=== PATIENT | female | born 1955 | race Caucasian/White ===

== ENCOUNTER 2016-05-24 20:28 | Emergency (ER) | payer MEDICARE, OTHER ==
[~2016-05-24 20:28] MED LIST: ACYC400T2 PO; CALC-190 PO; CHOL100043 PO; CITA40TA13 PO; CYAN1TAB42 PO; CYCL10TA9 PO; MULT1CAP33 PO; OXYC5CAP4 PO; POLY17PO2 PO; SIMV40TA5 PO; SYMINH IH
[2016-05-24 20:45] VITALS: BP 160/109; PULSE 96; RESP 16; O2SAT 96
--- NOTE | 2016-05-24 21:24 | ED.REPORT ---
HPI-Abd Pain F 40 and Over Date of Service May 24, 2016 ED Provider: Andrés Arevalo MD Patient is a 61 year old female with a hx of UTI and chronic back pain who presents to the ED due to lower abdominal pain that began two days ago. She c/o associated cloudy urine, intermittent back pain, nausea, and has felt feverish. She was diagnosed with E-coli six days ago and received appropriate single dose antibiotic therapy. She denies vomiting. She is currently out of her oxycodone and cannot get a refill for 4 more days. Nursing Notes Stated Complaint: ABDOMINAL PAIN, UTI SYMPTOMS Chief Complaint: Female Abdominal Pain Nursing Notes Reviewed: Yes Allergies: Coded Allergies: Penicillins (Verified Allergy, Severe, ANAPHYLACTIC, 11/15/15) ibuprofen (Verified Allergy, Intermediate, LIPS SWELL, 11/15/15) Cephalosporins (Verified Allergy, Unknown, 11/15/15) Nitrofuran Analogues (Verified Allergy, Unknown, UNKNOWN, 10/12/14) Opioids - Morphine Analogues (Verified Allergy, Unknown, 11/15/15) Sulfa (Sulfonamide Antibiotics) (Verified Allergy, Unknown, 11/15/15) bupropion (Verified Allergy, Unknown, 11/15/15) codeine (Verified Allergy, Unknown, 11/15/15) fluoxetine (Verified Allergy, Unknown, UNKNOWN, 11/15/15) hydrocodone bitartrate (Verified Allergy, Unknown, 11/15/15) iodine (Verified Allergy, Unknown, 11/15/15) phenazopyridine HCl (Verified Allergy, Unknown, 11/15/15) povidone-iodine (Verified Allergy, Unknown, HIVES, SORETHROAT, 11/15/15) soap (Verified Allergy, Unknown, HIVES, SORETHROAT, 11/15/15) trazodone (Verified Allergy, Unknown, UNKNOWN, 11/15/15) varenicline (Verified Allergy, Unknown, UNKNOWN, 11/15/15) Scheduled Acyclovir (Acyclovir) 400 Mg Tablet 400 MG PO PRN Budesonide/Formoterol 160-4.5 mcg Inh (Symbicort 160-4.5 mcg Inh) 1 Puff Inha 1 PUFF IH BID Calcium Carb&Cit/Mag12/Vit D3 (Calcium 500 mg Tablet) 1 Each Tablet 1 EACH PO BID Cholecalciferol (Vitamin D3) (Vitamin D) 1,000 Unit Tablet 1,000 UNIT PO DAILY Citalopram (Citalopram) 40 Mg Tablet 40 MG PO DAILY Cyanocobalamin/Folic Acid (Vitamin T28-Tqhxr Acid Tablet) 1 Each Tablet 1 EACH PO DAILY Multivitamin (Multivitamins) 1 Each Capsule 1 EACH PO DAILY Simvastatin (Simvastatin) 40 Mg Tablet 40 MG PO HS Scheduled PRN Cyclobenzaprine (Cyclobenzaprine) 10 Mg Tablet 10 MG PO BID PRN PRN For Pain oxyCODONE (oxyCODONE) 5 Mg Capsule 5 MG PO Q4H PRN PRN For Pain Miscellaneous Medications Polyethylene Glycol 3350 (Polyethylene Glycol 3350) 17 Gm Powd.pack 17 GM PO General Time Seen by MD: 21:16 Chief Complaint Abdominal pain Hx Obtained From: Patient Arrived By: Walk-in Sudden in Onset?: Yes Onset Occurred: 2 days ago Symptom Duration: Since onset Location: : LLQ: RLQ Severity: Maximum: No pain Recent Healthcare: Recent doctor visit Similar Sx Previous: Yes Past Medical History Past Medical History Notes: PCP Dr. Johnson Past Medical History frequent UTI, chronic back pain depression HSVII PTSD Spinal Stenosis Reports: Asthma, COPD, Cancer (skin), Hypertension Past Surgical History Back surgery Carpal tunnel Hand surgery Colonoscopy Reports: Appendectomy, Hysterectomy Family History Noncontributory Smoking History Current Every Day Smoker Social History Alcohol Use: Denies alcohol use Drug Use: THC Other Social History: Local resident Ambulatory Status Independent Review of Systems Constitutional: Reports: Fever GI: Reports: Abdominal pain, Nausea, Denies: Vomiting Musculoskeletal: Reports: Back pain Complete sys rev & neg: except as marked. Physical Exam Vital Signs Vital Signs (First) Date Time Temp Pulse Resp B/P Pulse Ox O2 Delivery O2 Flow Rate FiO2 05/24/16 20:45 35.2 96 16 160/109 96 Room Air Initial VS: Reviewed, Vital signs abnormal Head / Eyes: Atraumatic, Normocephalic, PERRL ENT: Mucous membranes moist, Conjunctiva normal, No scleral icterus Neck: Supple, Non-tender, Full range of motion Lymphatic: No lymphadenopathy Extremities: Vascular intact, Neuro intact, No swelling, No tenderness Skin: Warm, Dry, No cyanosis Neurologic: Alert, Oriented, Nonfocal Psychiatric: Mood/affect normal, Behavior normal, Normal thought content General/Constitutional: Awake, Alert, No acute distress, Well appearing, Well hydrated, Cooperative, Not toxic appearing Appearance / Presentation: Positive: Obese Respiratory / Chest: Atraumatic, Breath sounds NL, Breath sounds = bilat, No respiratory distress, No rales, No rhonchi, No wheezing, No retractions Cardiovascular: Heart rate NL, Regular rhythm, Heart sounds NL, No gallop, No murmurs, No rubs Tenderness/Guarding/Rebound: Positive: Tender LLQ..., Tender RLQ... Back: Atraumatic, Inspection NL, Full range of motion, Painless range of motion , Non-tender, No midline vertebral tend Interpretation & Diagnostics Lab Results Interpretation Result Diagram: 05/24/16 2240 05/24/16 2240 Test 05/24/16 21:13 05/24/16 22:40 Urine Color Yellow (YELLOW) Urine Appearance Clear (CLEAR,HAZY) Urine pH 6.0 (5.0-8.0) Urine Specific [place] 1.015 (1.003-1.035) Urine Protein Negativemg/dL (NEG,TRACE) Urine Glucose (UA) Negativemg/dL (NEGATIVE) Urine Ketones Negativemg/dL (NEGATIVE) Urine Occult Blood Negative (NEGATIVE) Urine Nitrite Negative (NEGATIVE) Urine Bilirubin Negative (NEGATIVE) Urine Urobilinogen Normalmg/dL (NORMAL) Urine Leukocyte Esterase Negative (NEGATIVE) Urine RBC 0-2/hpf (0-2) Urine WBC 0-5/hpf (0-5) Urine Epithelial Cells Occasional/hpf (NONE-MOD) Urine Crystals None seen (NONE SEEN) Urine Bacteria None/hpf (NONE-FEW) Urine Hyaline Casts None/lpf (NONE) Urine Granular Casts None seen (NONE SEEN) Urine Waxy Casts None seen (NONE SEEN) Urine Red Blood Cell Casts None seen (NONE SEEN) Urine White Blood Cell Casts None seen (NONE SEEN) Urine Mucus None seen (None Seen) Urine Trichomonas None seen (NONE SEEN) Urine Yeast None (NONE SEEN) Urinalysis Comment None Urine Culture Reflexed Not indicated White Blood Count 9.9th/mm3 (3.8-10.1) Red Blood Count 4.77mil/mm3 (3.90-5.20) Hemoglobin 14.5g/dL (12.0-15.6) Hematocrit 41.8% (35.0-46.0) Mean Corpuscular Volume 87.6fL (81-100) Mean Corpuscular Hemoglobin 30.4pg (27.0-35.0) Mean Corpuscular Hemoglobin Concent 34.7% (32.0-37.0) Red Cell Distribution Width 12.1% (12.3-15.4) Platelet Count 183bil/L (150-400) Neutrophils (%) (Auto) 43.3% (40-74) Lymphocytes (%) (Auto) 44.9% (14-46) Monocytes (%) (Auto) 7.0% (4-12) Eosinophils (%) (Auto) 4.1% (0-5) Basophils (%) (Auto) 0.5% (0-3) Sodium Level 143mEq/L (134-144) Potassium Level 4.1mEq/L (3.5-5.2) Chloride Level 104mEq/L (97-108) Carbon Dioxide Level 25mmol/L (18-29) Blood Urea Nitrogen 15mg/dL (8-27) Creatinine 0.72mg/dL (0.57-1.00) Estimat Glomerular Filtration Rate 117mL/min (>59) Glucose Level 99mg/dL (60-99) Calcium Level 9.2mg/dL (8.5-10.1) Magnesium Level 2.1mg/dL (1.6-2.6) Total Bilirubin 0.2mg/dL (0.0-1.2) Aspartate Amino Transf (AST/SGOT) 23U/L (0-50) Alanine Aminotransferase (ALT/SGPT) 28U/L (0-32) Alkaline Phosphatase 73U/L (25-165) Total Protein 7.0g/dL (6.4-8.4) Albumin 4.4g/dL (3.4-5.0) Lipase 25U/L (13-60) Hold Esteves Top Tube Received (Received) Lab values outside NL range: no clinical significance. Lab Results Interpretation: No evidence of urinary tract infection CT Chest Interpretation no acute findings Radiologist: Faby Blair M.D. Study type: Chest CT no contrast Interpretation / Wet Read by: Interpret - Radiologist Re-Eval/Medical Decision Med Decision/Clinical Course 61-year-old on chronic pain medications for chronic back pain presents with lower abdominal pain. She has had a recent urinary tract infection, urine today is negative. CT scan shows no specific cause for her pain. She has overused her pain medications this month and is currently out. She is not in overt withdrawal at this time. She has an appointment tomorrow with Dr. rodriguez at [facility]. She has a prescription for pain medication to get filled in 4 days for her monthly supply. I find no serious cause for her abdominal pain at this time. Re-Evaluation/Progress : Time of Eval: 00:33 Re-Evaluation/Progress Note: Pt rechecked. Ct shows no acute abnormalities. Pt is informed of diagnosis and intended plan. All questions are addressed. Pt understands and agrees with the treatment plan. Counseled Regarding: Diagnosis, Lab results, Need for follow-up Discharge & Departure Primary Impression: Abdominal pain Abdominal location: lower abdomen Qualified Code: R10.30 - Lower abdominal pain, unspecified Disposition: Home Discharge Condition All VS Reviewed: Yes Condition: Stable Patient Instructions: Acute Abdominal Pain (ED) Additional Instructions: Your labs are normal. You do not currently have a urinary tract infection. Your CT scan is normal, showing no serious cause for ear pain. Follow up as scheduled with Dr. Groves tomorrow for further evaluation Referrals: Maria E Groves MD (PCP) Scribe Attestation Portions of this note were transcribed by Meño Clark. I, Dr. Arevalo personally performed the history, physical exam and medical decision-making; I reviewed and confirmed the accuracy of the information in the transcribed note. Signed by: Abbie Dahl, 05/25/16 0040 copies to: Maria E Groves MD, Howard L MD May 24, 2016 21:24 MEÑO CLARK May 24, 2016 21:44
[2016-05-24 21:33] LABS: APPEARANCE,URINE CLEAR (CLEAR,HAZY); COLOR,URINE YELLOW (YELLOW)
[2016-05-24 21:34] LABS: OCCULT BLOOD,URINE NEGATIVE (NEGATIVE); UROBILINOGEN,URINE NORMAL (NORMAL)
[2016-05-24 23:00] VITALS: BP 150/90; PULSE 92; RESP 16; O2SAT 95
[2016-05-24 23:00] LABS: BASOPHILS % (AUTO) 0.5 % (0-3); EOSINOPHILS % (AUTO) 4.1 % (0-5); Mean Corpuscular Hemoglobin 30.4 pg (27.0-35.0); Mean Corpuscular Volume 87.6 fL (81-100); NEUTROPHILS % (AUTO) 43.3 % (40-74); Platelet Count 183 bil/L (150-400)
[2016-05-24 23:29] LABS: Magnesium 2.1 mg/dL (1.6-2.6)
[2016-05-25 01:00] VITALS: BP 152/94; PULSE 95; RESP 17; O2SAT 96
--- NOTE | 2016-05-25 09:19 | DRSVH ---
PROCEDURE: CT ABDOMEN AND PELVIS WITH CONTRAST ([id number]) INDICATIONS: 61 year-old woman with lower abdominal pain. TECHNIQUE: After the administration of intravenous contrast, 5 mm thick sections acquired from the diaphragm to the symphysis. 5 mm coronal and sagittal reformats were acquired. For radiation dose reduction, the following was used: automated exposure control, adjustment of mA and/or kV according to patient siz e. COMPARISON: None. FINDINGS: Image quality: Excellent. ABDOMEN: Lung bases: Lung bases are clear. Heart size is normal. Solid organs: Mild diffuse hepatic fatty tissue should. Liver and spleen are normal in size and enha ncement. Gallbladder is normal. Biliary system is non dilated. Pancreas enhances normally. No adr enal nodules. Kidneys demonstrate normal size and enhancement, without hydronephrosis. Peritoneum and bowel: There are surgical clips in the right lower quadrant, presumably for appendect ilir. Bowel loops demonstrate normal wall thickness and caliber. Fluid filled small bowel loops are n oted. No free fluid or air. Nodes and vessels: No retroperitoneal or mesenteric adenopathy by size criteria. Aorta and inferior vena cava are normal in size. Miscellaneous: No ventral hernias. PELVIS: Genitourinary: Bladder wall thickness is normal. Miscellaneous: No inguinal hernias or adenopathy. Bones: There is grade 1 under recesses of L4-L5 secondary to pars interarticularis defects. Degenera tive disc and facet disease noted in lumbar spine. No suspicious bony lesions. No vertebral body com pression fractures. IMPRESSION: 1. Fluid filled normal caliber small intestine. This finding is nonspecific and could be related to e nteritis. Recommend clinical correlation. 2. Appendectomy. 3. Mild hepatic steatosis. 4. Grade 1 anterolisthesis of L4 over L5 secondary to pars interarticularis defect. There are degener ative changes in lumbar spine. No significant discrepancy with the overnight cashier radiology preliminary report. Dictated by: Yady Andrews M.D. on 05/25/2016 at 9:12 Approved by: Yady Andrews M.D. on 05/25/2016 at 9:18
== END 2016-05-25 01:02 | disposition home or self-care (01) ==
LOC: SED 20:28
DX: R10.30 Lower abdominal pain, unspecified (principal); I10 Essential (primary) hypertension; F17.210 Nicotine dependence, cigarettes, uncomplicated; Z86.19 Personal history of other infectious and parasitic diseases; Z87.440 Personal history of urinary (tract) infections; Z85.828 Personal history of other malignant neoplasm of skin; Z88.2 Allergy status to sulfonamides; Z88.5 Allergy status to narcotic agent; Z88.8 Allergy status to other drugs, medicaments and biological substances; Z88.0 Allergy status to penicillin; Z88.6 Allergy status to analgesic agent; Z88.1 Allergy status to other antibiotic agents
CPT/HCPCS: 36415; 74177; 80053; 81000; 83690; 83735; 85025; 99284; Q9967

== ENCOUNTER 2016-06-13 19:21 | Emergency (ER) | payer MEDICARE, OTHER ==
[~2016-06-13] VITALS: Ht 170.2 cm; Wt 99.5 kg
[2016-06-13 19:28] VITALS: BP 134/92; PULSE 97; RESP 18; O2SAT 98
--- NOTE | 2016-06-13 19:50 | ED.REPORT ---
HPI- Female Date of Service Jun 13, 2016 ED Provider: Derrick Moran DO Pt is a 61 y.o. female with a hx of frequent UTI, HTN, and chronic back pain who presents to the ED c/o dysuria onset 3 days ago. Pt states that she is experiencing a "stinging" sensation at the end of each urination and that this pain is similar to when she has had UTI's in the past. Nursing Notes Stated Complaint: UTI Chief Complaint: Female Abdominal Pain Nursing Notes Reviewed: Yes Allergies: Coded Allergies: Penicillins (Verified Allergy, Severe, ANAPHYLACTIC, 06/13/16) ibuprofen (Verified Allergy, Intermediate, LIPS SWELL, 06/13/16) Cephalosporins (Verified Allergy, Unknown, 06/13/16) Nitrofuran Analogues (Verified Allergy, Unknown, UNKNOWN, 06/13/16) Opioids - Morphine Analogues (Verified Allergy, Unknown, 06/13/16) Sulfa (Sulfonamide Antibiotics) (Verified Allergy, Unknown, 06/13/16) bupropion (Verified Allergy, Unknown, 06/13/16) ciprofloxacin (Verified Allergy, Unknown, 06/13/16) codeine (Verified Allergy, Unknown, 06/13/16) fluoxetine (Verified Allergy, Unknown, UNKNOWN, 06/13/16) hydrocodone bitartrate (Verified Allergy, Unknown, 06/13/16) iodine (Verified Allergy, Unknown, 06/13/16) phenazopyridine HCl (Verified Allergy, Unknown, 06/13/16) povidone-iodine (Verified Allergy, Unknown, HIVES, SORETHROAT, 06/13/16) soap (Verified Allergy, Unknown, HIVES, SORETHROAT, 06/13/16) trazodone (Verified Allergy, Unknown, UNKNOWN, 06/13/16) varenicline (Verified Allergy, Unknown, UNKNOWN, 06/13/16) Scheduled Acyclovir (Acyclovir) 400 Mg Tablet 400 MG PO PRN Budesonide/Formoterol 160-4.5 mcg Inh (Symbicort 160-4.5 mcg Inh) 1 Puff Inha 1 PUFF IH BID Calcium Carb&Cit/Mag12/Vit D3 (Calcium 500 mg Tablet) 1 Each Tablet 1 EACH PO BID Cholecalciferol (Vitamin D3) (Vitamin D) 1,000 Unit Tablet 1,000 UNIT PO DAILY Citalopram (Citalopram) 40 Mg Tablet 40 MG PO DAILY Cyanocobalamin/Folic Acid (Vitamin I54-Pspwp Acid Tablet) 1 Each Tablet 1 EACH PO DAILY Multivitamin (Multivitamins) 1 Each Capsule 1 EACH PO DAILY Simvastatin (Simvastatin) 40 Mg Tablet 40 MG PO HS Scheduled PRN Cyclobenzaprine (Cyclobenzaprine) 10 Mg Tablet 10 MG PO BID PRN PRN For Pain oxyCODONE (oxyCODONE) 5 Mg Capsule 5 MG PO Q4H PRN PRN For Pain Miscellaneous Medications Polyethylene Glycol 3350 (Polyethylene Glycol 3350) 17 Gm Powd.pack 17 GM PO General Time Seen by MD: 19:50 Chief Complaint Dysuria Hx Obtained From: Patient Arrived By: Walk-in Sudden in Onset?: Yes Onset Occurred: 3 days ago Symptom Duration: Since onset Quality: Painful Severity: Current: No pain currently Recent Healthcare: No recent doctor visit, No recent hospitalization Similar Sx Previous: Yes Past Medical History Past Medical History Notes: PCP Dr. Johnson Past Medical History frequent UTI, chronic back pain depression HSVII PTSD Spinal Stenosis Reports: Asthma, COPD, Cancer, Hypertension Past Surgical History Back surgery Carpal tunnel Hand surgery Colonoscopy Reports: Appendectomy, Hysterectomy Family History Noncontributory Smoking History Current Every Day Smoker Social History Alcohol Use: Denies alcohol use Drug Use: THC Other Social History: Local resident Ambulatory Status Independent Review of Systems Basic Review of Systems Eyes: Vision NL Respiratory: No shortness of breath Cardiovascular: No chest pain, No dyspnea on exertion Hematologic: No bleeding Constitutional: Denies: Chills, Fever Female: Reports: Dysuria Musculoskeletal: Denies: Back pain Complete sys rev & neg: except as marked. Physical Exam Initial Vital Signs Vital Signs (First) Date Time Temp Pulse Resp B/P Pulse Ox O2 Delivery O2 Flow Rate FiO2 06/13/16 19:28 36.3 97 18 134/92 98 Room Air Initial VS: Reviewed Head / Eyes: Atraumatic, Normocephalic Abdomen / GI: No distention Extremities: Vascular intact, Neuro intact Skin: Warm, Dry, No cyanosis Neurologic: Alert, Oriented, Nonfocal Psychiatric: Mood/affect normal, Behavior normal, Normal thought content Female Genitourinary: Exam deferred General/Constitutional: Awake, Alert, No acute distress, Well appearing, Well developed, Well hydrated, Well nourished, Not toxic appearing Respiratory / Chest: Atraumatic, Breath sounds NL, No respiratory distress Cardiovascular: Heart rate NL, Regular rhythm, Peripheral circulation NL Back: Atraumatic, Inspection NL, No CVA tenderness Interpretation & Diagnostics Lab Results Interpretation Test 06/13/16 20:00 Urine Color Yellow (YELLOW) Urine Appearance Hazy (CLEAR,HAZY) Urine pH 7.0 (5.0-8.0) Urine Specific [place] 1.015 (1.003-1.035) Urine Protein Negativemg/dL (NEG,TRACE) Urine Glucose (UA) Negativemg/dL (NEGATIVE) Urine Ketones Negativemg/dL (NEGATIVE) Urine Occult Blood Trace (NEGATIVE) Urine Nitrite Positive (NEGATIVE) Urine Bilirubin Negative (NEGATIVE) Urine Urobilinogen Normalmg/dL (NORMAL) Urine Leukocyte Esterase Moderate (NEGATIVE) Urine RBC 3-10/hpf (0-2) Urine WBC >50/hpf (0-5) Urine Epithelial Cells Many/hpf (NONE-MOD) Urine Crystals None seen (NONE SEEN) Urine Bacteria Many/hpf (NONE-FEW) Urine Hyaline Casts None/lpf (NONE) Urine Granular Casts None seen (NONE SEEN) Urine Waxy Casts None seen (NONE SEEN) Urine Red Blood Cell Casts None seen (NONE SEEN) Urine White Blood Cell Casts None seen (NONE SEEN) Urine Mucus None seen (None Seen) Urine Trichomonas None seen (NONE SEEN) Urine Yeast None (NONE SEEN) Urinalysis Comment None Urine Culture Reflexed Indicated Re-Eval/Medical Decision Med Decision/Clinical Course No historical or physical exam findings for pyelonephritis. No flank pain. No fever. This sounds an uncomplicated cystitis. Taking into account her litany of drug allergies she will be treated with a single dose of oral fosfomycin. We will culture her urine to be sure that this is going to be a successful antibiotic. Follow up with her primary care next week. Source of Hx: Old records Re-Evaluation/Progress : Time of Eval: 20:01 Re-Evaluation/Progress Note: Discussed pt allergies and prior abx use. Counseled Regarding: Diagnosis Discharge & Departure Shift Change Sign-Out Response to Therapy: Improved Impression: Primary Impression: UTI (urinary tract infection) Urinary tract infection type: acute cystitis Hematuria presence: without hematuria Qualified Code: N30.00 - Acute cystitis without hematuria Disposition: Home Discharge Condition All VS Reviewed: Yes Condition: Stable Patient Instructions: Urinary Tract Infection in Women (DC) Additional Instructions: You have been treated with a dose of fosfomycin and this should eradicate the bladder infection. We have cultured your urine. This will be available next week. Call your doctor on Wednesday to set up a follow-up appointment to review the urine culture results. If symptoms persist and/or have not improved within 48 hours then you may need another dose of fosfomycin. You may come back to the emergency department or talk to your doctor about this as well. Referrals: Maria E Groves MD (PCP) Abbie Attestation Portions of this note were transcribed by Jordan Mistry. I, Dr. Moran personally performed the history, physical exam and medical decision-making; I reviewed and confirmed the accuracy of the information in the transcribed note. Signed by : Abbie Pineda, 06/13/16 and 2034. copies to: Maria E Groves MD, Todd P DO Jun 13, 2016 19:50 JORDAN MISTRY Jun 13, 2016 20:02
[2016-06-13 20:24] LABS: APPEARANCE,URINE HAZY (CLEAR,HAZY); COLOR,URINE YELLOW (YELLOW); OCCULT BLOOD,URINE TRACE (NEGATIVE); UROBILINOGEN,URINE NORMAL (NORMAL)
[2016-06-13 20:40] VITALS: BP 125/89; PULSE 95; RESP 18; O2SAT 97
== END 2016-06-13 20:41 | disposition home or self-care (01) ==
LOC: SED 19:21
DX: N39.0 Urinary tract infection, site not specified (principal); I10 Essential (primary) hypertension; F17.200 Nicotine dependence, unspecified, uncomplicated; B96.20 Unspecified Escherichia coli [E. coli] as the cause of diseases classified elsewhere; Z87.440 Personal history of urinary (tract) infections; Z90.710 Acquired absence of both cervix and uterus; Z88.0 Allergy status to penicillin; Z88.1 Allergy status to other antibiotic agents; Z88.2 Allergy status to sulfonamides; Z88.5 Allergy status to narcotic agent; Z88.6 Allergy status to analgesic agent; Z88.8 Allergy status to other drugs, medicaments and biological substances

== ENCOUNTER 2016-09-19 20:01 | Emergency (ER) | payer OTHER, MEDICARE ==
[~2016-09-19] VITALS: Ht 170.2 cm; Wt 99.5 kg
[2016-09-19 20:05] VITALS: BP 146/84; PULSE 106; RESP 22; O2SAT 98
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
[2016-09-19 22:41] LABS: APPEARANCE,URINE CLEAR (CLEAR,HAZY); COLOR,URINE YELLOW (YELLOW); OCCULT BLOOD,URINE NEGATIVE (NEGATIVE); UROBILINOGEN,URINE NORMAL (NORMAL)
== END 2016-09-19 22:57 | disposition home or self-care (01) ==
LOC: SED 20:01
DX: S16.1XXA Strain of muscle, fascia and tendon at neck level, initial encounter (principal); V43.52XA Car driver injured in collision with other type car in traffic accident, initial encounter; Y93.89 Activity, other specified; Y92.410 Unspecified street and highway as the place of occurrence of the external cause; Y99.8 Other external cause status; I10 Essential (primary) hypertension; F43.10 Post-traumatic stress disorder, unspecified; F17.200 Nicotine dependence, unspecified, uncomplicated; Z90.710 Acquired absence of both cervix and uterus; Z88.0 Allergy status to penicillin; Z88.1 Allergy status to other antibiotic agents; Z88.2 Allergy status to sulfonamides; Z88.5 Allergy status to narcotic agent; Z88.6 Allergy status to analgesic agent; Z88.8 Allergy status to other drugs, medicaments and biological substances